=== PATIENT | male | born 1985 | race African-American/Black ===

== ENCOUNTER 2018-02-12 06:56 | Outpatient (CLI) | payer OTHER | END 2018-02-12 07:22 | disposition short-term general hospital (02) | LOC: AMB 06:56 | DX: R07.89 Other chest pain (principal); V49.88XA Car occupant (driver) (passenger) injured in other specified transport accidents, initial encounter; Y92.488 Other paved roadways as the place of occurrence of the external cause | CPT/HCPCS: A0425; A0429 ==

== ENCOUNTER 2018-02-12 07:22 | Emergency (ER) | payer OTHER ==
[~2018-02-12] VITALS: Ht 172.7 cm; Wt 69.4 kg
== END 2018-02-12 09:25 | disposition home or self-care (01) ==
LOC: ED 07:22
DX: R07.89 Other chest pain (principal); M54.9 Dorsalgia, unspecified; M79.1 Myalgia; V59.40XA Driver of pick-up truck or van injured in collision with unspecified motor vehicles in traffic accident, initial encounter
CPT/HCPCS: 99283